=== PATIENT | female | born 1975 | race Caucasian/White ===

== ENCOUNTER 2017-04-01 08:00 | Outpatient (CLI) | payer OTHER ==
[2017-04-01 13:17] LABS: BASOPHILS % (AUTO) 0.5 %; EOSINOPHILS # (AUTO) 0.1 10^3/uL (0.0-0.7); EOSINOPHILS % (AUTO) 1.1 %; LYMPHOCYTES % (AUTO) 42.8 %; MEAN CORPUSCULAR HEMOGLOBIN 28.6 pg (27.0-31.0); MEAN CORPUSCULAR HGB CONC 33.8 g/dL (32.0-36.0); MEAN CORPUSCULAR VOLUME 84.5 fL (81.0-99.0); MONOCYTES # (AUTO) 0.3 10^3/uL (0.0-1.0); MONOCYTES % (AUTO) 6.9 %; NEUTROPHILS # (AUTO) 2.3 10^3/uL (1.5-6.6); NEUTROPHILS % (AUTO) 48.7 %; PLT - PLATELET COUNT 206 10^3/uL (130-450); RED BLOOD COUNT 4.89 10^6/uL (4.20-5.40); WHITE BLOOD COUNT 4.8 x10^3/uL (4.8-10.8)
[2017-04-01 13:53] LABS: ALBUMIN 4.1 g/dL (3.2-5.5); ALBUMIN/GLOBULIN RATIO 1.5 (1.0-2.2); ALKALINE PHOSPHATASE 51 IU/L (42-121); ALT ALANINE AMINOTRANSFERASE 15 IU/L (10-60); AST ASPARTATE AMINOTRANSFERASE 20 IU/L (10-42); BILIRUBIN,TOTAL 0.6 mg/dL (0.2-1.0); BUN - BLOOD UREA NITROGEN 9 mg/dL (6-20); CALCIUM 8.9 mg/dL (8.5-10.3); CARBON DIOXIDE - CO2 26 mmol/L (21-32); CHLORIDE 107 mmol/L (101-111); CREATININE 0.9 mg/dL (0.4-1.0); GFR - MDRD 70 (>89); GLUCOSE 88 mg/dL (70-100); SODIUM 137 mmol/L (135-145); TOTAL PROTEIN 6.9 g/dL (6.7-8.2)
== END 2017-04-01 08:01 | disposition home or self-care (01) ==
LOC: LAB.WCP 08:00
PROVIDERS: ATTEND Family Medicine
DX: R53.83 Other fatigue (principal); F32.9 Major depressive disorder, single episode, unspecified; F41.9 Anxiety disorder, unspecified
CPT/HCPCS: 36415; 80050

== ENCOUNTER 2017-07-15 11:14 | Outpatient (CLI) | payer OTHER ==
--- NOTE | 2017-07-15 14:30 | Ultrasound Report ---
PELVIC ULTRASOUND: 07/15/2017 CLINICAL INDICATION: Check IUD. TECHNIQUE: Transabdominal pelvic ultrasound performed for global evaluation. Transvaginal pelvic ultrasound performed for detailed evaluation. Real-time scanning performed and static images obtained. FINDINGS: The uterus is anteverted, measuring 8.0 x 3.8 x 3.6 cm. The endometrium measures 6 mm. An IUD is noted in the endometrial canal. The ovaries are normal, with the right measuring 2.6 x 1.9 x 1.8 cm and the left measuring 3.1 x 2.5 x 2.4 cm. Trace free fluid is present. IMPRESSION: IUD IN THE EXPECTED LOCATION. NORMAL PELVIC ULTRASOUND. TD: 07/15/2017 14:20
== END 2017-07-15 11:15 | disposition home or self-care (01) ==
LOC: DI 11:14
PROVIDERS: ATTEND Physician Assistant Medical
DX: Z30.431 Encounter for routine checking of intrauterine contraceptive device (principal)
CPT/HCPCS: 76830; 76856

== ENCOUNTER 2017-12-16 15:04 | Outpatient (CLI) | payer OTHER ==
--- NOTE | 2017-12-17 09:32 | Mammography Report ---
Reason: BILAT SCREEN w IMPS Procedure Date: 12/16/2017 Accession Number: [id number] / [id number] Procedure: [facility]EDERIC - Screening Mammo Dig w/Implants CPT Code: FULL RESULT: EXAM: Screening Mammo Dig w/Implants DATE: 12/16/2017 3:37 PM CLINICAL HISTORY: BILAT SCREEN w IMPS TECHNIQUE: Bilateral CC and MLO projections with additional implant displaced views. COMPARISON: Baseline examination. FINDINGS: There are scattered fibroglandular densities. There is no dominant mass, architectural distortion, skin thickening, or suspicious microcalcifications in either breast. The implants are unremarkable in appearance. IMPRESSION: Negative examination. Suggest follow-up routine screening mammography in one year. BI-RADS 1 negative
== END 2017-12-16 15:05 | disposition home or self-care (01) ==
LOC: DI 15:04
DX: Z12.31 Encounter for screening mammogram for malignant neoplasm of breast (principal); Z98.82 Breast implant status
CPT/HCPCS: 77067

== ENCOUNTER 2018-09-04 07:14 | Emergency (ER) | payer OTHER ==
[2018-09-04 07:44] VITALS: BP 116/83
--- NOTE | 2018-09-04 08:56 | Ultrasound Report ---
Reason: L calf pain after confinement Procedure Date: 09/04/2018 Accession Number: [id number] / [id number] Procedure: US - Duplex Ext Veins Left CPT Code: FULL RESULT: EXAM: LEFT LOWER EXTREMITY VENOUS ULTRASOUND EXAM DATE: 09/04/2018 08:48 AM. CLINICAL HISTORY: Left calf pain after long car ride. COMPARISON: None. TECHNIQUE: Real-time sonographic vascular imaging was performed by the dietitian therapeutic through the lower extremity utilizing both color-flow and Doppler spectral analysis. Multiple technical service representative static images were saved for review. FINDINGS: Common Femoral Vein (CFV): Normal. CFV-GSV Junction: Normal. Profunda Femoral Vein (PFV): Normal. Femoral Vein (FV) Prox: Normal. Femoral Vein (FV) Mid: Normal. Femoral Vein (FV) Dist: Normal. Popliteal Vein: Normal. Posterior Tibial Veins: Normal. Peroneal Veins: Normal. Other: None. IMPRESSION: No evidence for deep venous thrombosis. RADIA
--- NOTE | 2018-09-04 09:10 | ED Physician Documentation ---
PD HPI LOWER EXT INJURY - Stated complaint Stated Complaint: LEFT LEG PX - Chief complaint Chief Complaint: Ext Problem - History obtained from History obtained from: Patient - History of Present Illness PD HPI LOW EXT INJURY LOCATION: Left, Lower leg Type of injury: Other (running sprints) Where injury occurred: Home Timing - onset: How many days ago (3) Timing - duration: Days (3) Timing - details: Abrupt onset, Still present Improved by: Rest, Immobilization Worsened by: Moving, Palpating Associated symptoms: No: Weakness, Numbness, Tingling, Swelling Similar symptoms before: Has not had sx before Recently seen: Not recently seen - Additional information Additional information: 43-year-old female previously healthy did some running 3 days ago after a car trip and she did some sprints and ended up having some severe cramping in her left calf and she became concerned when the pain persisted and someone mention the possibility of a blood clot and she had been on a long car trip. She is come to the emergency department now primarily with concern of a possibility of deep vein thrombosis. Review of Systems Constitutional: denies: Fever Eyes: denies: Decreased vision Ears: denies: Ear pain Nose: denies: Congestion Throat: denies: Sore throat Respiratory: denies: Cough GI: denies: Vomiting PD PAST MEDICAL HISTORY - Past Medical History Musculoskeletal: Chronic back pain - Present Medications Home Medications: Ambulatory Orders Medication Instructions Recorded Confirmed Bupropion HCl [Wellbutrin Xl] 300 mg PO DAILY 09/04/18 09/04/18 - Allergies Allergies/Adverse Reactions: Allergies Allergy/AdvReac Type Severity Reaction Status Date / Time No Known Drug Allergies Allergy Verified 09/04/18 07:44 PD ED PE NORMAL - Vitals Vital signs reviewed: Yes (hypertensive mild) - General General: Alert and oriented X 3, No acute distress, Well developed/nourished - HEENT HEENT: Atraumatic, PERRL, EOMI - Neck Neck: Supple, no meningeal sign - Respiratory Respiratory: No respiratory distress - Derm Derm: Normal color, Warm and dry, No rash - Extremities Extremities: No deformity, No edema, Other (There is tenderness to the left posterior calf and medial calf. There is no palpable cord and distal n/v is intact. 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, No motor deficit, No sensory deficit, Normal speech Eye Opening: Spontaneous Motor: Obeys Commands Verbal: Oriented GCS Score: 15 - Psych Psych: Normal mood, Normal affect Results - Vitals Vitals: Vital Signs - 24 hr 09/04/18 07:41 Temperature 36.4 C L Heart Rate 69 Respiratory 16 Rate Blood Pressure 116/83 H O2 Saturation 100 Oxygen O2 Source Room air - Rads (name of study) duplex Radiology: Prelim report reviewed (Impression: No evidence for deep venous thrombosis.), EMP read indepedently, See rad report PD MEDICAL DECISION MAKING - ED course Complexity details: reviewed results, considered differential, d/w patient ED course: 43-year-old female with a calf strain was significantly concerned about the possibility of deep venous thrombosis and there is no evidence of DVT on ultrasound exam. Departure - Departure Disposition: 01 Home, Self Care Clinical Impression: Gastrocnemius strain, left Qualifiers: Encounter type: initial encounter Qualified Code(s): S86.112A - Strain of other muscle(s) and tendon(s) of posterior muscle group at lower leg level, left leg, initial encounter Condition: Stable Instructions: Gastrocnemius Stretch Follow-Up: Liz Carreno PA-C [Primary Care Provider] -
== END 2018-09-04 09:28 | disposition home or self-care (01) ==
LOC: ED 07:14
DX: S86.112A Strain of other muscle(s) and tendon(s) of posterior muscle group at lower leg level, left leg, initial encounter (principal); X50.9XXA Other and unspecified overexertion or strenuous movements or postures, initial encounter; Y93.02 Activity, running; Y92.009 Unspecified place in unspecified non-institutional (private) residence as the place of occurrence of the external cause
CPT/HCPCS: 99282; 99284

== ENCOUNTER 2019-01-17 09:11 | Outpatient (CLI) | payer OTHER ==
--- NOTE | 2019-01-17 10:42 | Mammography Report ---
Reason: ROUTINE MAMMO Procedure Date: 01/17/2019 Accession Number: [id number] / [id number] Procedure: MGN - Screening Mammo Dig w/Implants CPT Code: Final Report FULL RESULT: EXAM: Screening Mammo Dig w/Implants DATE: 01/17/2019 9:39 AM CLINICAL HISTORY: The patient is an asymmetric 43-year-old female presenting for screening mammography. No personal nor family history of breast cancer. Bilateral implants placed 2011. TECHNIQUE: (B) - Bilateral CC and MLO views were obtained. COMPARISON: None PARENCHYMAL PATTERN: (A) - The breasts demonstrate scattered fibroglandular densities bilaterally. FINDINGS: Stable bilateral subpectoral silicone implants. There are no suspicious masses, calcifications, or areas of distortion. IMPRESSION: Negative examination. BI-RADS category 1. RECOMMENDATION: (ANNUAL) - Recommend routine annual screening mammography. BI-RADS CATEGORY: (1) - Negative. STANDARD QUALIFYING STATEMENTS: 1. This examination was not reviewed with the aid of Computer-Aided Detection (CAD). 2. A negative or benign imaging report should not preclude biopsy if clinically suspicious findings are present. 3. Dense breasts may obscure an underlying neoplasm.
== END 2019-01-17 09:12 | disposition home or self-care (01) ==
LOC: DI.N 09:11
DX: Z12.31 Encounter for screening mammogram for malignant neoplasm of breast (principal); Z98.82 Breast implant status
CPT/HCPCS: 77067

== ENCOUNTER 2019-02-23 09:00 | Outpatient (CLI) | payer OTHER | END 2019-02-23 23:59 | disposition home or self-care (01) | LOC: LAB.R 09:00 | PROVIDERS: ATTEND Family Medicine | DX: M54.89 Other dorsalgia (principal) | CPT/HCPCS: 87086 ==

== ENCOUNTER 2019-02-23 10:04 | Outpatient (CLI) | payer OTHER ==
--- NOTE | 2019-02-23 10:51 | XRAY Report ---
Reason: ACUTE BACK PAIN Procedure Date: 02/23/2019 Accession Number: [id number] / [id number] Procedure: WCP - Lumbar Spine 2 View CPT Code: Final Report FULL RESULT: EXAM: LUMBOSACRAL SPINE RADIOGRAPHY EXAM DATE: 02/23/2019 10:04 AM. CLINICAL HISTORY: Acute back pain. COMPARISONS: None. TECHNIQUE: 2 views. FINDINGS: Alignment: Normal. No spondylolisthesis or scoliosis. Bones: Five [id number] lumbar vertebral bodies are present. No fractures or bone lesions. Disks: Mild loss of disk space height is seen at L5-S1. Facets: Mild facet degenerative changes are seen at L5. There is potentially a pars defect which is not well seen at L5, a coned-down lateral view could help clarify if clinically indicated. Sacroiliac Joints: Unremarkable. Soft Tissues: Normal. The visualized bowel gas pattern is normal. IMPRESSION: Mild L5 degenerative changes, possibly an L5 pars defect which could be clarified with a additional lateral spot view if clinically indicated. No L5 listhesis is seen. RADIA
== END 2019-02-23 23:59 | disposition home or self-care (01) ==
LOC: DI.WCP 10:04
PROVIDERS: ATTEND Family Medicine
DX: M47.816 Spondylosis without myelopathy or radiculopathy, lumbar region (principal); M51.37 Other intervertebral disc degeneration, lumbosacral region
CPT/HCPCS: 72100; 87086

== ENCOUNTER 2020-01-15 10:26 | Outpatient (CLI) | payer OTHER ==
--- NOTE | 2020-01-16 13:38 | Mammography Report ---
BILATERAL DIGITAL SCREENING MAMMOGRAM 3D/2D WITH AUGMENTATION: 01/15/2020 CLINICAL: Routine screening. Comparison is made to exams dated: 08/17/2018 mammogram and 12/16/2017 mammogram - [facility]. There are scattered fibroglandular elements in both breasts. Bilateral breast implants are stable and intact. No significant masses, calcifications, or other findings are seen in either breast. There has been no significant interval change. IMPRESSION: NEGATIVE There is no mammographic evidence of malignancy. A 1 year screening mammogram is recommended. This exam was interpreted at Station ID: [id number]. NOTE: For mammograms, a report in lay terms will be sent to the patient. Approximately 15% of breast malignancies will not be visualized mammographically. In the management of a palpable breast mass, a negative mammogram must not discourage biopsy of a clinically suspicious lesion. Electronically Signed By: Inder Frankel M.D. slc/penrad:01/15/2020 11:11:49 ACR BI-RADS Category 1: Negative [id number] PARENCHYMAL PATTERN: (A) - The breast(s) demonstrate(s) scattered fibroglandular densities. BI-RADS CATEGORY: (1) - 1 RECOMMENDATION: (ANNUAL) - Recommend routine annual screening mammography. [id number] 1 year screening LATERALITY: (B)
== END 2020-01-15 10:27 | disposition home or self-care (01) ==
LOC: DI.N 10:26
DX: Z12.31 Encounter for screening mammogram for malignant neoplasm of breast (principal)
CPT/HCPCS: 77063; 77067